=== PATIENT | female | born 1945 | race African-American/Black ===

== ENCOUNTER 2022-03-05 11:02 | Day surgery (SDC) | payer OTHER ==
[2022-03-05] MEDS ORDERED: Ringers Lactate 1,000 ML IV ONE (11:23)
[2022-03-05] MEDS ORDERED: propofoL 200 MG/20 ML VIAL IV ONE ×2 (11:48→11:50)
[2022-03-05] MEDS ORDERED: LIDOCAINE 2% MPF 5 ML VIAL ONE (11:49)
[2022-03-05] MEDS ORDERED: TRIAMCINOLONE ACETON 40 MG/ML VIAL ONE ×2 (12:41→13:16)
[2022-03-05] MEDS ORDERED: BUPIVACAINE 0.25% PF 10 ML VIAL ONE (13:16)
[2022-03-05] MEDS ORDERED: LIDOCAINE 1% 20 ML MDV ONE (13:16)
[2022-03-05 14:25] VITALS: BP 183/91; TEMP 98.6; O2SAT 99
--- NOTE | 2022-03-05 14:54 | RAD REPORT ---
EXAM DESCRIPTION: RAD - Fluoroscopy <1 Hour - 03/05/2022 2:42 pm CLINICAL HISTORY: Device placement SI joint and hip injection FINDINGS: Aspen placed into the SI joint and hip for pain injection The examination was performed by Dr. Harp Three fluoroscopic spot images obtained. Fluoroscopy time 0.1 minute
== END 2022-03-05 14:05 | disposition home or self-care (01) ==
LOC: OR 11:02
PROVIDERS: ATTEND Pain Medicine Interventional Pain Medicine
PROC: 3E0U33Z Introduction of Anti-inflammatory into Joints, Percutaneous Approach (ICD-10-PCS; 2022-03-05)
PROC: 3E0U33Z Introduction of Anti-inflammatory into Joints, Percutaneous Approach (ICD-10-PCS; principal; 2022-03-05 12:45)
DX: M46.1 Sacroiliitis, not elsewhere classified (principal); M70.61 Trochanteric bursitis, right hip; M47.816 Spondylosis without myelopathy or radiculopathy, lumbar region; M54.16 Radiculopathy, lumbar region; M60.9 Myositis, unspecified; G89.4 Chronic pain syndrome
CPT/HCPCS: 27096; 20611; J2704; J3301 ×2; J2001; J7120; Q9967; 76000